=== PATIENT | female | born 1960 | race African-American/Black ===

== ENCOUNTER 2021-02-09 23:42 | Inpatient (IN) | payer OTHER ==
[~2021-02-09] VITALS: Ht 167.6 cm; Wt 100.9 kg
[2021-02-10] MEDS ORDERED: LEXAPRO 10 MG T10 M1 PO (01:05)
[2021-02-10 02:10] VITALS: BP 161/87
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
[2021-02-10] MEDS ORDERED: MIRALAX17 GM PO ×2 (05:27→05:28)
[2021-02-10] MEDS ORDERED: NORVASC10 MG PO (05:29)
[2021-02-10] MEDS ORDERED: CLOZAPINE100 M1 PO (05:30)
[2021-02-10] MEDS ORDERED: BROMOCRIPTINE2.5 M1 PO (05:31)
[2021-02-10] MEDS ORDERED: ACID REDUCER20 MG PO (05:32)
[2021-02-10] MEDS ORDERED: CELEXA 20 MG TA20 MG PO (05:32)
[2021-02-10] MEDS ORDERED: SENNA PLUS TAB1 EACH PO (05:33)
[2021-02-10] MEDS ORDERED: LIPITOR10 MG PO (05:33)
[2021-02-10 08:52] LABS: CHOLESTEROL 128 mg/dL (<200); HDL CHOLESTEROL 47 mg/dL (>40); LDL CHOLESTEROL 70 mg/dL (<100); TC:HDL 2.7 Ratio (Not establshd); TRIGLYCERIDE 55 mg/dL (<150); VLDL 11 mg/dL (<40)
[2021-02-10 10:10] VITALS: BP 110/68
--- NOTE | 2021-02-10 10:35 | NUR ---
1035 RESUMMED CARE FROM OVERNIGHT SHIFT THIS AM, PATIENT IN ROOM SLEEPING DUE TO PRN GIVEN AT 0459 AM. PATIENTS ABDOMEN SOFT BOWEL SOUNDS PRESENT PATIENTS LUNGS CLEAR. UPON ADMISSON PATIENT DENIES SI/HI/AH/VH PATIENT ASLEEP I WILL CONSULT WITH HER LATER IN THE DAY. WILL CONTINUE TO MONITOR PATIENT FOR SAFETY AND BEHAVIORS.
--- NOTE | 2021-02-10 18:23 | NUR ---
BARON and Dr. Spain were able to talk to the Pt's Guardian, Della Schmidt. Della informed the Pt has been at [facility] sine November of 2020. Pt was dx with schizophrenia when she was 20 years old. Pt was living on her own until recently and working until about 5 years ago. Pt does not have any children. No known history of physical or sexual abuse. A meeting was scheduled for 01/25/2021 @ 1130am for Della to sign MICHAEL to get records from [facility].
--- NOTE | 2021-02-10 18:31 | NUR ---
BARON and Dr. Spain were able to speak with BARON Hurley at [facility]. Mei stated the Pt was a " model resident". They Pt was complaint with medications and corporative with care. On Tuesday Pt and her roommate had a disagreement. Pt was sent to [facility] but later returned to the facility. WHen Pt returned Pt's behaviors escalated. Pt became aggitated, yelling and screaming. Pt was having VH, talking to unseen people. Pt was again sent back to [facility]. Olivia described this behavior as "uncharacteristic" for the Pt. BARON team will continue to follow.
[2021-02-10 19:20] VITALS: BP 104/56
[2021-02-10 20:30] VITALS: BP 122/60
[2021-02-11 02:06] LABS: GLYCOHEMOGLOBIN (HGB A1C) 6.6 % (4.8-5.6)
--- NOTE | 2021-02-11 02:07 | NUR ---
PATIENT HAS BEEN IN BED RESTING WITH EYES CLOSED SINCE BEGINNING OF SHIFT. SHE DID RESPOND TO THIS NURSE WHEN I CALLED HER NAME. PATIENT ASSESSED AND IS DROWSY. SHE DENIES SI/HI. NO AVH AT THIS TIME. PATIENT TOOK MEDS WHOLE, SITTING UP IN BED. PATIENT SLEEPING IN CLOTHES AND TOO DROWSY TO GET UP AND CHANGE. BED PLACED IN LOW POSITION AND BED ALARM ON D/T DROWSINESS FROM A MED GIVEN EARLIER ON DAY SHIFT. PATIENT RESTARTED ON CLOZAPINE .25MG PO TONIGHT. CALLED DR WILLIAMSON TO VERIFY THAT OK TO GIVE MED D/T BP WAS ON LOW SIDE. SHE STATES OK LONG PULSE WAS ABOVE 60 ALSO. MED GIVEN WITHOUT INCIDENT. ROUTINE ROUNDS TO ASSESS SAFETY AND STATUS OF PATIENT.
--- NOTE | 2021-02-11 08:34 | NUR ---
Assess due to new admit to [facility]. Hx bipolar, schizophrenia, diabetes. A1C 6.6 showing good BG control. Lipids wnl. Wt obese, BMI 36.6. Refused first 2 meals, then ate 60%. Add carb control diet order. Low nutrition risk and will follow intake trends and weekly wts.
[2021-02-11 09:27] VITALS: BP 151/84
--- NOTE | 2021-02-11 12:08 | NUR ---
Welcome email sent to sister/guardian, Della - @
--- NOTE | 2021-02-11 12:22 | NUR ---
PATIENT WAS UP, AND IN PEERS' ROOM USING HER BATHROMM WHEN CARE ASSUMED. PATIENT WENT TO DINNING ROOM FOR BREAKFAST AFTER THAT. SHE IS EATING MEALS, AND DRINKING FLUID WELL, SHE WENT BACK TO ROOM, AND ISOLATES SELF IN ROOM. PATIENT DECLINES MORNING GROUP, SHE TOOK ALL MEDICATION WHOLE WITHOUT DIFFICULTY. PATIENT IS ALERT, FORGETFUL, CONFUSED AT TIMES. PATIENT DENIES SUICIDAL/HOMICIDAL IDEATION, NOT ABLE TO APPROPRIATELY RESPOND TO FURTHER ASSESSMENT QUESTIONS DUE TO COGNITIVE IMPAIREMENT. PATIENT AMBULATE WITH SLOW STEADY GAIT. AFFECT IS FLAT/BLUNTED, MOOD IS EUTHYMIC, SPEECH IS TANGENTIAL. NO AGITATION, OR AGGRESSIVE BEHAVIOR NOTED AT THIS TIME, WILL MONITOR FOR SAFETY.
--- NOTE | 2021-02-11 16:38 | NUR ---
4:38PM - FAX sent to [facility] - Release of Information for pt.
[2021-02-11 19:38] VITALS: BP 137/74
[2021-02-11 19:45] VITALS: BP 137/74
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
[2021-02-12 00:43] VITALS: BP 137/74
--- NOTE | 2021-02-12 01:27 | NUR ---
0125 RESUMMED CARE FROM DAY SHIFT THIS EVENING PATIENT IN ROOM RESTING QUIET. PATIENT DENIES SI/HI/AH/VH AT PRESENT PATIENT CALM COOPERATIVE VERY PLEASANT. PATIENTS ABDOMEN SOFT BOWEL SOUNDS PRESENT PATIENTS LUNGS CLEAR. PATIENT ASKED FOR ICE CREAM SHE TOOK HER MEDICATION WITHOUT INCIDENCE WILL CONTINUE TO MONITOR PATIENT FOR SAFETY AND BEHAVIORS,
--- NOTE | 2021-02-12 01:55 | NUR ---
PATIENT HAS BEEN SMILING, PLEASANT AND COOPERATIVE TONIGHT. SHE HAS INITIATED CONVERSATION WITH NURSE. SHE CAME OUT OF ROOM FOR HER HS SNACK OF ICECREAM AND WENT BACK TO HER ROOM. SHE TOOK HER MEDS WHOLE WITH WATER AND WENT TO BED. SHE HAS BEEN A/0X1-2. SHE WALKS WITH A STEADY GAIT. SHE DENIES PAIN. DENIES SI/HI/AVH. ROUTINE ROUNDS TO ASSESS SAFETY AND STATUS OF PATIENT.
[2021-02-12 09:23] VITALS: BP 142/85
--- NOTE | 2021-02-12 15:51 | NUR ---
Set up Zoom meeting with sister Della Schmidt for next , February 19 so patient and sister may visit. Also received records from patient s last stay at [facility]
--- NOTE | 2021-02-12 16:17 | NUR ---
Alert and orientated X3. Calm, quiet and compliant. Denies SI/HI. Breath sounds clear. Reg HR auscultated. Color pink with brisk capillary refill and palpable peripheral pulses. Independent with voiding. Active bowel sounds over soft, rounded abdomen. Ambulates with regular, steady gait. Participating in groups, isolates to room when not at meals/groups.
[2021-02-12 19:44] VITALS: BP 144/73
[2021-02-12 19:55] VITALS: BP 144/73
--- NOTE | 2021-02-12 22:02 | NUR ---
Assumed care on 02/12/21 @ 1900, seated in the day room coloring on adult coloring pages. Oriented to person and place. 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 Noted to be speaking to unseen others. However, remains calm. Continues to be able to toilet self. Retires to bed @ HS and is lying in bed at this writing with eyes closed and respirations even and unlabored.
[2021-02-13 09:12] VITALS: BP 129/116
--- NOTE | 2021-02-13 12:41 | NUR ---
Sitting on bed in darkened room. Initially refusing to answer question about orientation but then orientated X4. Denies SI/HI/hallucinations. Breath sounds clear. Reg HR auscultated. Color pink with brisk capillary refill and palpable peripheral pulses. Independent with voiding. Active bowel sounds over soft, rounded abdomen. Ambulates with steady gait. Spent most of AM coloring in day room. No s/o distress.
[2021-02-13 14:45] VITALS: BP 131/98
[2021-02-13 19:40] VITALS: BP 141/76
--- NOTE | 2021-02-13 19:48 | NUR ---
Assumed care on 02/13/21 @ 1900, seated at the table with a peer. Cooperated wth assessment, HRRR, Lungs CTA, ABD Nx4Q, reports no bm today, but had 2 yesterday. Denies H/A and H/V, Denies SI/HI. Denies pain. Will continue to monitor as per unit protocol.
[2021-02-13 20:17] VITALS: BP 141/76
[2021-02-14 10:41] VITALS: BP 141/76
[2021-02-14 12:25] VITALS: BP 143/86
--- NOTE | 2021-02-14 13:54 | NUR ---
HAS BEEN SITTING QUIETLY IN DAYROOM SO FAR THIS SHIT-DID ATTEND SCHEDULED ACTIVITIES WITH VERBAL RESPONSESE OFFERED WITH QUEING. GAIT STEADY WITHOUT ASSISTIVE DEVICES. COMPLIENT WITH TAKING AM MEDS WHOLE. SHOWERED AND CLOTHING CHANGE WITH STAFF ASSIST. ORIENTED TO PERSON,PLACE-NO TO DATE.VS WNL-DENIES PAIN.DISCOMFORT. CONSTRICED AFFECT
--- NOTE | 2021-02-14 17:05 | NUR ---
oil field worker met with pt. Pt. reported doing well and having no concerns. Pt. then talked about needing dresses, purses, jeans and other clothes. Pt. was not able to be redirected. However, pt. was pleasant.
--- NOTE | 2021-02-14 18:24 | NUR ---
CALM AND COOPERATIVE THIS AM-TOOK AM MEDICATIONS WITHOUT HESITATION-ATTENDED GROUP ACTIVITY AND WAS COMPLIENT WITH SHOWER,SHAMPOO AND CLOTHING CHANGE. GAIT IS STEADY WITHOUT ASSISTIVE DEVICES-ORIENTED TO PERSON AND HOSPITALL UNABLE TO ID NAME OF HOSPITAL BELIEVING SHE WAS AT [facility].AT APPROX 1500 REPORTED TO ABRUPTLY BEGIN TO SHOUT AT UNSEEN OTHER SWEARING AND SPEAKING RAPIDLY-VERBALIZATIONS ARE DIFFICULT TO UNDERSTAND,FRAGMENTED AND INCOHERENT BUT APPEARS TO BE AFRAID FOR CHILDREN OR BELIEVE CHILDREN ARE IN DANGER. 1500 SEROQUEL OFFERED AND REFUSED-REATTEMPTED X3 AND NOTED TO BECOME SLIGHTLY MORE AGITATED WITH EACH ATTEMPT-TOOK PILL AND HELD IN HAND BEFORE DROPPING IT TO THE GROUND -FLAQUITA WINE PASTEURIZER NOTIFIED OF ABOVE HALDOL 5MG GIVEN IM AT 1600 IN RIGHT DELTOID WITH NO REISTANCE OFFERED.
[2021-02-14 19:34] VITALS: BP 134/80
--- NOTE | 2021-02-15 05:03 | NUR ---
02-14-21 CARE TRANSFERRED 1900 OBSERVED PT SITTING IN DAY ROOM. LATER PT AAOX2, VSS, RR EVEN AND NONLABORED ON RA. PT DENIES SI/HI/VAH AND PAIN. PT PRESENTS RESTLESS BUT REMAINS CALM AND COOPEATIVE THROUGHOUT NURSING ASSESSMENT. LATER HEARD PT TALKING TO SELF IN ROOM, PT REPORTED SHE WAS TALKING TO HER NEIGHBOR, SHE WAS STANDING IN THE CORNER. PT WAS EASILY REORIENTATED AND READILY ACCEPTANCE. PT HAD NO DIFFICULTIES TAKING MEDICATION WHOLE WITH WATER. PT WILL CONTINUE TO MONIOTR PER [facility] PROTOCOL.
[2021-02-15 05:57] LABS: ABSOLUTE NEUTROPHILS 1.5 thou/uL (1.4-8.2); BASOPHILS 0.4 % (0.0-2.0); EOSINOPHILS 2.7 % (0.0-3.0); HEMATOCRIT 38.2 % (37.0-47.0); HEMOGLOBIN 12.5 gm/dL (12.0-15.0); LYMPHOCYTES 41.1 % (24.0-44.0); MCH 29.9 pg (26.0-34.0); MCHC 32.8 g/dL (28.0-37.0); MCV 91.1 fL (80.0-100.0); MONOCYTES 9.4 % (1.0-8.0); PLATELET COUNT 250 thou/uL (150-400); POLYS 46.4 % (36.0-66.0); RBC 4.19 mil/uL (4.20-5.00); RDW 14.7 % (10.5-14.5); WBC 3.2 thou/uL (4.0-11.0)
[2021-02-15 06:27] LABS: ALBUMIN 3.3 g/dL (3.4-5.0); CALCIUM 8.8 mg/dL (8.5-10.1); CREATININE 0.8 mg/dL (0.6-1.0); MAGNESIUM 2.2 mg/dL (1.8-2.4); PHOSPHORUS 4.1 mg/dL (2.5-4.9); POTASSIUM 3.5 mmol/L (3.5-5.1); TOTAL BILIRUBIN 0.2 mg/dL (0.2-1.0); TOTAL PROTEIN 6.8 g/dL (6.4-8.2)
[2021-02-15 09:25] VITALS: BP 125/83
--- NOTE | 2021-02-15 12:36 | NUR ---
PATIENT CARE ASSUMED AT 0700 - CALM AND AGREEABLE. FOLLOWS DIRECTION VERY WELL. ALERT TO SELF - TAKES CARE OF HER OWN ADL'S . COMPLIANT WITH MEDICATIONS. GOOD APPETITE. AMBULATORY - DID NOT OBSERVE ANY INTERNAL STIMULI - NO PAIN OR DISCOMFORT WHEN ASSESSED. HEART RATE STRONG AND STEADY AND LUNGS CLEAR ON AUSCULTATION. STATED RASH BILATERALLY ON FOREARM ITCH - APPLIED SCHEDULED HYROCORDAZONE. TOLERATED WELL. WILL CONTINUE TO MONITOR PATIENT FOR SAFETY AND ADDRESS ANY CONCERNS OR CHANGE IN BEHAVIOR ACCORDINGLY.
[2021-02-15 20:02] VITALS: BP 126/69
--- NOTE | 2021-02-16 03:53 | NUR ---
02-15-21 CARE TRANSFERRED 1900 OBSERVED PT SITTING IN DAY ROOM. LATER PT AAOX1, VSS, RR EVEN AND NONLABORED ON RA, PT DENIES SI/HI/VAH AND PAIN. PT PRESENTS PLEASANT, CALM AND COOPERATIVE THROUGHOUT NURSING ASSESSMENT. DURING MEDICATION PT HAD NO DIFFICULTIES TAKING WHOLE WITH WATER. LATER PT BED WAS ADJUSTED FOR COMFORT, PT WILL CONTINUE TO BE MONITOR PER [facility] PROTOCOL.
[2021-02-16 06:40] LABS: HEMOGLOBIN 12.8 gm/dL (12.0-15.0); MCH 30.1 pg (26.0-34.0); MCHC 32.9 g/dL (28.0-37.0); MCV 91.4 fL (80.0-100.0); PLATELET COUNT 262 thou/uL (150-400); RBC 4.27 mil/uL (4.20-5.00); RDW 14.2 % (10.5-14.5); WBC 2.8 thou/uL (4.0-11.0)
[2021-02-16 07:19] LABS: FOLIC ACID 11.5 ng/mL (8.6-58.9)
--- NOTE | 2021-02-16 07:25 | EKG ---
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 02/16/21 0725 1522 1522 Edison Mullins MD, FACC /EPI
[2021-02-16 09:28] LABS: ABSOLUTE NEUTROPHILS 1.3 thou/uL (1.4-8.2); ANISOCYTOSIS 1+; PLATELET ESTIMATE NORMAL
[2021-02-16 09:33] VITALS: BP 142/88
--- NOTE | 2021-02-16 10:29 | NUR ---
1030 assumed care of pt from overnight nurse. pt alert times 2. pt denies pain. pt talk with self but denying that she is. pt denies SI/HI/AH/VH. pt lungs clear. pt abdomen soft, bowel sounds present. pt w no behaviorial issues at this time. pt medication compliant. pt ate breakfast w no issue. will continue to monitor pt for safety and needs.
[2021-02-16 20:23] VITALS: BP 140/74
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
[2021-02-17 07:48] VITALS: BP 143/78
--- NOTE | 2021-02-17 17:23 | NUR ---
PATIENT HAS BEEN CALM AND COOPERATIVE. COMPLIANT WITH MEDICATIONS - RASH ON UPPER EXTREMITIES IMPROVING. ALERT - MADE NEEDS KNOWN. GOOD APPETITE - OUT ON UNIT - PARTICIPATED IN GROUP ACTIVITIES - ambulating around independently. vitals within norm -
[2021-02-17 19:55] VITALS: BP 144/82
[2021-02-17 20:36] VITALS: BP 144/82
--- NOTE | 2021-02-18 03:01 | NUR ---
PATIENT CARE WAS RESUMED AT 1900. SHE WAS SITTING IN THE DINNING AREA. ALERT AND ABLE TO VERBALIZE HER NEEDS. SHE DENIES ANY DISCOMFORT,SI/AVH/HI. LUNGS ARE CLEAR BS ACTIVE X4 QUAD. SHE IS CONTINENT OF BOWEL AND BLADDER. AMBULATES AND SHE TOOK HER MEDS WHOLE. BS ACTIVE X4 QUADS. NO CONCERN NOTED AT THIS TIME. CONTINUE CARE AND MONITOR
[2021-02-18 05:58] LABS: ABSOLUTE NEUTROPHILS 1.7 thou/uL (1.4-8.2); BASOPHILS 0.5 % (0.0-2.0); EOSINOPHILS 1.8 % (0.0-3.0); HEMATOCRIT 37.8 % (37.0-47.0); HEMOGLOBIN 12.6 gm/dL (12.0-15.0); LYMPHOCYTES 35.7 % (24.0-44.0); MCH 30.3 pg (26.0-34.0); MCHC 33.4 g/dL (28.0-37.0); MCV 90.8 fL (80.0-100.0); MONOCYTES 10.2 % (1.0-8.0); PLATELET COUNT 249 thou/uL (150-400); POLYS 51.8 % (36.0-66.0); RBC 4.16 mil/uL (4.20-5.00); RDW 14.7 % (10.5-14.5); WBC 3.3 thou/uL (4.0-11.0)
--- NOTE | 2021-02-18 09:05 | NUR ---
Followup: eating 100% of meals, tolerating diet well. Remains low nutrition risk
[2021-02-18 09:43] VITALS: BP 121/66
--- NOTE | 2021-02-18 13:36 | NUR ---
Assumed pt care at 0700. Pt was in the day room. Alert and oriented to person, place and situation. Assessments completed, vss. Denies SI/HI, denies Pain. Took meds whole, no difficulty noted. Calm and cooperative with care. Ambulates with a steady gait. No sign of acute distress noted upon assessments. Makes needs known to staff. Continent of bowel and bladder. At this time, pt is in the day room listening to music. Will continue to monitor.
--- NOTE | 2021-02-18 13:40 | NUR ---
RT Progress Note- Margarita has shown very good participation in therapeutic recreation groups since her admission. In the first few days, Margarita was difficult to engage while she was outwardly experiencing hallucinations which distracted her and also appeared to cause her frustration. Throughout this week she has shown little internal stimuli response and has had improved focus. She remains pleasant. 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
[2021-02-18 20:04] VITALS: BP 142/82
[2021-02-18 20:05] VITALS: BP 143/113
[2021-02-18 20:37] VITALS: BP 142/82
--- NOTE | 2021-02-19 03:36 | NUR ---
02-19-21 CARE TRANSFERRED 1900 OBSERVED PT SITTING IN DAY ROOM. LATER PT AAOX1, VSS, RR EVEN AND NONLABORED ON RA, PT DENIES PAIN AND SI/HI/VAH. PT PRESENTS PLESANT, CALM AND COOPERATIVE. DURING MEDICATION ADMIN PT HAD NO DIFFICULTIES. LATER PT BED ADJUSTED FOR PT COMFORT, PT WILL CONTINUE TO BE MONITOR PER [facility].
[2021-02-19 09:38] VITALS: BP 120/81
--- NOTE | 2021-02-19 11:43 | NUR ---
Patient care assumed 0700, she is alert and oriented x3, sitting in the day room, calm and cooperative for assessment, ate breakfast, vss, active bowel sound, breath sound clear, regular HR, RR even and nonlabored on room air, patient took his medication whole, patient ambulate on a steady gait, attend groups, no behavior change, she denies SI/HI. will continue to monitor patient for safety.
--- NOTE | 2021-02-19 16:05 | NUR ---
BARON and Dr. Spain met with the Pt. The Pt's Guardian, Della, participated by phone. Dr. Spain gave an update on medications and treatment. Pt has made good progress with the restart of Closaril. It was stressed that Pt have CBC's weekly. Discharge was discussed. Pt will discharge 02/20/2021 @ 1300. Della will be able to pick the Pt up and transport back to [facility].
--- NOTE | 2021-02-19 16:12 | NUR ---
BARON spoke with Catina, , from [facility] . BARON informed of Pt's discharge. Abida requested updates be sent to . BARON informed that the Pt's Guardian would be transporting the Pt back to the facility. BARON also informed the Pt would need weekly CBC labs due to restarting clozaril. Abida stated the Pt does see the [facility] and the psychiatrist that rounds at the facility. BARON did fax requested information. Pt will d/c 02/20/2021 @ 9480.
[2021-02-19 20:14] VITALS: BP 119/68
--- NOTE | 2021-02-20 01:25 | NUR ---
PATIENT CALM COOPERATIVE AND COMPLIANT. SHE IS ALERT TO PERSON PACE AND SITUATION. DENIES ANY PAIN OR NEEDS AT THIS TIME. IS COMPLIANT WITH MEDICATIONS AND TREATMENT. INTERACTS SOME WITH HER PEERS. EXHIBITS POLITE BEHAVIOR. NO DELUSIONS OR HALLUCINATIONS NOTED TONIGHT. VSS. WILL CONTINUE TO MONITOR FOR CHANGES IN STATUS.
[2021-02-20 09:29] VITALS: BP 127/69
[2021-02-20] MEDS ORDERED: CLOZAPINE50 MG PO (09:35)
[2021-02-20] MEDS ORDERED: MIRALAX17 GM PO (09:36)
--- NOTE | 2021-02-20 11:21 | NUR ---
Pt's discharge documents were faxed to [facility] . A copy of the fax cover sheet and confirmation were placed in the chart.
--- NOTE | 2021-02-20 12:53 | NUR ---
Patient care assumed 0700, patient wake sitting in the day room, assessment completed, breath sound clear, she took her medication whole, active bowel sound, patient cooperative with care, she denies si/hi, she is discharged to intermediate care facility, report was called to CHRYSTAL Frey
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
== END 2021-02-20 14:20 | DRG 885 ==
LOC: SBH
PROVIDERS: Internal Medicine; ADMIT Psychiatry & Neurology Psychiatry; ATTEND Psychiatry & Neurology Psychiatry
DX: F20.9 Schizophrenia, unspecified (principal); I10 Essential (primary) hypertension; E66.9 Obesity, unspecified; K21.9 Gastro-esophageal reflux disease without esophagitis; F31.9 Bipolar disorder, unspecified; F41.9 Anxiety disorder, unspecified; K59.00 Constipation, unspecified; E78.5 Hyperlipidemia, unspecified; E11.9 Type 2 diabetes mellitus without complications; R07.9 Chest pain, unspecified; D72.819 Decreased white blood cell count, unspecified; D35.00 Benign neoplasm of unspecified adrenal gland; D35.2 Benign neoplasm of pituitary gland; Z20.822 Contact with and (suspected) exposure to COVID-19; Z68.35 Body mass index [BMI] 35.0-35.9, adult
CPT/HCPCS: 10880

== ENCOUNTER 2021-02-10 00:35 | Emergency (ER) | payer OTHER ==
[~2021-02-10] VITALS: Ht 165.1 cm; Wt 104.3 kg
--- NOTE | ~2021-02-10 | EMS ---
[facility] [address] [place] [address] EMS Patient Care Report Name: KATE LUDWIG Room #: DEP Tammy#: [id number] Admission: 02/10/21 Attend Phys: Discharge: 02/10/21 Date of : 64 Report #: [id number] THIS REPORT FOR: //name// Report Transmitted: 02/11/2021 08:50 EMS Care Summary [place], [place]/[facility] Incident [id number] @ 02/09/2021 23:47 Incident Location [address] [place] [address] ED 38 Patient KATE LUDWIG Female, 60 Years 1960 Patient Address Patient History None Reported, Patient Allergies No known allergies, Patient Medications None Reported, Chief Complaint transfer Disposition Transported No Lights/[place] Dispatch Reason Transfer/Interfacility/Palliative Care Transported To [facility] Narrative called for a transfer. upon arrival pt was found sitting upright on a bed. she was being admitted for psych issues. he got onto stretcher under own power. vitals were obtained in the ambulance. no change noted during transport. she expressed no complaints. Initial Vitals [facility] [address] [place] [address] EMS Patient Care Report Name: KATE LUDWIG Room #: DEP MCatherine.#: [id number] Admission: 02/10/21 Attend Phys: Discharge: 02/10/21 Date of : 64 Report #: [id number] @00:14P: 98, @00:12P: 100,R: 18,BP: 130/80,Pain: 0/10,GCS: 15,SpO2: 99,Revised Trauma: 12, Assessments @00:09MENTAL:Event Oriented,Place Oriented,Person Oriented,Hallucinations,Time Oriented,SKIN:HEENT:LUNG SOUNDS:ABDOMEN:PELVIS//GI:EXTREMITIES:PULSE:NEURO: Impression Need for continuous medical supervision Procedures @00:09ALS AssessmentResponse: UnchangedSucceeded Timeline 22:26,Call Received 22:26,Dispatch Notified 23:47,Dispatched 23:49,En Route 23:58,On Scene 23:59,At Patient 00:09,Depart Scene 00:09,ALS Assessment,Response: UnchangedSucceeded, 00:12,BP: 130/80 M,PULSE: 100,RR: 18 R,SPO2: 99 Ox,ETCO2: ,BG: ,PAIN: 0,GCS: 15, 00:14,BP: 140/ M,PULSE: 98,RR: R,SPO2: Ox,ETCO2: ,BG: ,PAIN: ,GCS: , 00:31,At Destination 00:41,Call Closed Disclaimer v1.1 Copyright 2020 [employer] This EMS Care Summary contains data elements from the applicable legal record (which may be displayed differently). It is designed to provide pertinent information for the following purposes: continuity of care, clinical quality, and state data reporting. The complete legal record is available to ED staff and administrators of the receiving hospital in [facility]'s Patient Tracker. All data is provided "as is."
[2021-02-10] MEDS ORDERED: LEXAPRO 10 MG T10 M1 PO (01:05)
[2021-02-10 02:05] VITALS: BP 157/84
[2021-02-10] MEDS ORDERED: MIRALAX17 GM PO ×2 (05:27→05:28)
[2021-02-10] MEDS ORDERED: NORVASC10 MG PO (05:29)
[2021-02-10] MEDS ORDERED: CLOZAPINE100 M1 PO (05:30)
[2021-02-10] MEDS ORDERED: BROMOCRIPTINE2.5 M1 PO (05:31)
[2021-02-10] MEDS ORDERED: CELEXA 20 MG TA20 MG PO (05:32)
[2021-02-10] MEDS ORDERED: ACID REDUCER20 MG PO (05:32)
[2021-02-10] MEDS ORDERED: LIPITOR10 MG PO (05:33)
[2021-02-10] MEDS ORDERED: SENNA PLUS TAB1 EACH PO (05:33)
== END 2021-02-10 02:10 ==
LOC: ER 00:35
DX: F20.9 Schizophrenia, unspecified (principal); Z20.822 Contact with and (suspected) exposure to COVID-19